=== PATIENT | male | born 1970 | race Caucasian/White ===

== ENCOUNTER 2019-06-18 23:50 | Observation (INO) ==
[2019-06-19] MEDS ORDERED: Isovue-370 500 ML BOTTLE IVP ONE (03:08)
--- NOTE | 2019-06-19 03:09 | Emergency Department Note ---
Disposition Clinical Impression: Lower leg edema Cellulitis Qualifiers: Site of cellulitis: other site Qualified Code(s): L03.818 - Cellulitis of other sites Disposition: Still a Patient Condition: Good Referrals: NONE,PCP [Primary Care Provider] - Forms: ED Satisfaction Letter Time of Disposition: 06:18 Extremity Problem HPI - General Chief complaint: ED Extremity Problem,Nontraumatic Stated complaint: BLE edema Time Seen by Provider: 06/19/19 01:04 Source: patient Limitations: no limitations Nursing Notes Reviewed: Yes Vital Signs Reviewed: Yes - History of Present Illness HPI Narrative: 48-year-old male presents with pain swelling and worsening infection to his lower legs. Since he was seen in this department 2 days ago and was diagnosed with skin infection placed on antibiotics. He states that he has had worsening swelling and pain to the point where it is causing him difficulty to walk. Additionally he also mentions his sores become more red and continue to drain. He denies any fevers, chest pain, shortness of breath Pain Scale: 7 - Related Data Previous Rx's Medication Instructions Recorded Albuterol Sulfate [Albuterol 1 puff IH Q4HR #1 hfa.aer.ad 02/18/19 Inhaler] Doxycycline Hyclate [Vibramycin] 100 mg PO BID #20 capsule 02/18/19 Guaifenesin/Dm/Pseudoephedrine 1 each PO BID #20 tablet 02/18/19 [Capmist Dm Tablet] Magic Mouthwash [Magic Mouthwash 10 ml PO QID #240 ml 02/18/19 BLM] PredniSONE [Deltasone] 20 mg PO DAILY #12 tablet 02/18/19 Mupirocin [Bactroban Oint] 1 appl TP TID #1 tube 06/16/19 cephALEXin [Keflex] 500 mg PO QID 7 Days #28 capsule 06/16/19 hydrOXYzine pamoate [Vistaril] 25 mg PO TID 7 Days #21 capsule 06/16/19 Allergies Allergy/AdvReac Type Severity Reaction Status Date / Time No Known Allergies Allergy Verified 02/18/19 12:44 All systems ED: reviewed and negative except as stated. Review of Systems: As Per HPI Constitutional: Denies: fever, chills Eyes: Denies: eye pain ENT ED: Denies: ear pain Cardiovascular: Denies: chest pain Respiratory: Denies: dyspnea Gastrointestinal: Denies: abdominal pain, nausea, vomiting Genitourinary: Denies: dysuria Musculoskeletal: Denies: back pain Integumentary: Denies: rash Neurological: Denies: headache Allergic/Immunologic: Denies: facial swelling Past Medical History - Past Medical History Medical history: Reports: COPD Surgical history: Reports: coronary bypass (CABG), knee replacement, other Psychiatric history: Reports: no psych history - Social History Smoking Status: Current every day smoker Smokeless Tobacco Status: No Alcohol use: Reports: occasionally Drug use: Reports: none Physical Exam - General Limitations: no limitations General appearance: alert, in no apparent distress - Head Head exam: atraumatic, normocephalic - Eye Eye exam: Present: normal appearance, EOMI - ENT ENT exam: mucous membranes moist - Neck Neck exam: Present: full ROM - Chest Chest inspection: Present: symmetric chest wall rise - Respiratory Respiratory exam: Absent: respiratory distress - Cardiovascular Cardiovascular exam: Present: regular rate - Abdominal Exam Abdominal exam: Present: soft - Extremities Exam Extremities exam: Present: normal capillary refill, other (multiple sores approx 1cm with surrounding erythema,) - Expanded Lower Extremity Exam Lower leg exam: Present: swelling (bilateral) - Back Exam Back exam: Present: normal inspection, full ROM - Neurological Exam Neurological exam: Present: alert - Psychiatric Psychiatric exam: Present: normal affect, normal mood - Skin Skin exam: Present: warm, dry, intact, normal color. Absent: rash, cyanosis, diaphoresis Course Course Narrative: Patient is a 48-year-old male presents with worsening infection his legs, I lateral lower leg edema and pain. Exercise patient 2 days ago where he had presented with itchy sores on his legs. At that time did appear to be consistent with a secondary skin infection and he was started on dose of cephalexin as well as topical mupirocin. Since that time, he mentions he has had gradual swelling of his lower legs, worsening pain in addition he also had mentioned redness around his sores has been spreading. Pt now using walker bc of lower leg pain. On exam pt has BLE edema, non pitting. Very tender to touch. Noted sores have persisted but the areas around the these sores are more erythemic and also tender. Concerning for cellulitis. Due to degree of pain, swelling, and possible infection. I discussed with attending Dr. Ziegler who agreed to see patient and for CT scans. Will also draw bloodwork, and workup for BLE edema. - Reevaluation(s) Reevaluation #1: CXR show diffuse peribronchial thickening. Radiology read mentions possible pulmonary edema. EKG non specific st-t changes otherwise acute changes. No elevated WBC. Normal lactic acid. Troponin elevated 0.06. Due to shift change, care of this patient will be transferred over to day shift provider, Felipe Keita CNP. CT lower extremity and BNP pending at this time. Pt pain improved. I anticipate pt will need to be admitted for cellulitis failing outpatient therapy and elevated troponin. Please see felipe's documentation for further evaluation and details on final disposition of patient. Time: 06:17 Vital Signs Temperature 98.3 F 06/18/19 23:54 Pulse Rate 79 06/18/19 23:54 Respiratory Rate 20 06/18/19 23:54 Blood Pressure 142/88 06/18/19 23:54 O2 Sat by Pulse Oximetry 96 06/18/19 23:54 Temperature 98.3 F 06/18/19 23:54 Pulse Rate 65 06/19/19 04:01 Respiratory Rate 16 06/19/19 04:01 Blood Pressure 142/86 06/19/19 04:01 O2 Sat by Pulse Oximetry 99 06/19/19 04:01 Oxygen Delivery Oxygen Delivery Room Air Extremity Problem, Nontraumati - MDM Narrative Medical decision making narrative: Chest X-Ray 06/19/19 04:44 IMPRESSION: Peribronchial thickening suspicious for pulmonary edema given clinical history of lower extremity edema. D/ / Ej Gurrola / Ej Gurrola Interpreting Provider: Ej Gurrola - Lab Data Lab results reviewed: Yes I reviewed the patient's lab results. Result diagrams: 06/19/19 04:10 06/19/19 04:10 Lab Results 06/19/19 06/19/19 06/19/19 Range/Units 04:10 04:10 04:10 WBC 7.6 (4.3-11.1) K/mcL RBC 4.57 (4.19-5.50) M/mcL Hgb 14.5 (12.9-16.9) g/dL Hct 43.1 (37.5-50.1) % MCV 94.3 (83.0-100.0) fL MCH 31.7 (28.0-33.3) pg MCHC 33.6 (31.6-35.5) g/dL RDW 13.0 (11.5-14.5) % Plt Count 222 (140-400) K/mcL MPV 8.8 L (9.4-12.4) fL Immature Gran % 0.7 (0-4) % Seg Neutrophils % 56.6 % Lymphocytes % 29.0 % Monocytes % 10.4 % Eosinophils % 2.2 % Basophils % 1.1 % Neutrophils # 4.3 (1.6-8.9) K/mcL Lymphocytes # 2.2 (0.6-4.6) K/mcL Monocytes # 0.8 (0.0-1.3) K/mcL Eosinophils # 0.2 (0.0-0.6) K/mcL Basophils # 0.1 (0.0-0.2) K/mcL Sodium 136 (136-145) mEq/L Potassium 3.7 (3.5-5.1) mEq/L Chloride 102 (98-107) mEq/L Carbon Dioxide 27 (23-29) mEq/L BUN 12 (6-20) mg/dL Creatinine 1.07 (0.70-1.30) mg/dL Est GFR ( Amer) > 60 (> 60) Est GFR (Non-Af Amer) > 60 (> 60) BUN/Creatinine Ratio 11 (6-26) Glucose 95 (70-105) mg/dL Calculated Osmolality 282 (280-300) Lactic Acid 0.8 (0.5-2.2) mmol/L Calcium 9.1 (8.6-10.3) mg/dL - Radiology Data Radiology results reviewed: Yes I reviewed the patient's radiology results. - EKG Data EKG attestation: Yes I reviewed and interpreted this EKG. EKG shows normal: sinus rhythm Rate: normal Rhythm: NSR Guth[place]/QRS: normal Interpretation: no acute changes, nonspecific ST-T wave changes
[2019-06-19 04:21] LABS: Basophils # 0.1 K/mcL (0.0-0.2); Basophils % 1.1 %; Eosinophils # 0.2 K/mcL (0.0-0.6); Eosinophils % 2.2 %; Hematocrit 43.1 % (37.5-50.1); Hemoglobin 14.5 g/dL (12.9-16.9); Immature Granulocytes % 0.7 % (0-4); Lymphocytes # 2.2 K/mcL (0.6-4.6); Mean Corpuscular HGB Conc 33.6 g/dL (31.6-35.5); Mean Corpuscular Hemoglobin 31.7 pg (28.0-33.3); Mean Corpuscular Volume 94.3 fL (83.0-100.0); Mean Platelet Volume 8.8 fL (9.4-12.4); Monocytes # 0.8 K/mcL (0.0-1.3); Monocytes % 10.4 %; Neutrophils # 4.3 K/mcL (1.6-8.9); Platelet Count 222 K/mcL (140-400); Red Blood Count 4.57 M/mcL (4.19-5.50); Segmented Neutrophils % 56.6 %; White Blood Count 7.6 K/mcL (4.3-11.1)
[2019-06-19 04:40] LABS: BUN/Creatinine Ratio 11 (6-26); Blood Urea Nitrogen 12 mg/dL (6-20); Calcium 9.1 mg/dL (8.6-10.3); Carbon Dioxide 27 mEq/L (23-29); Chloride 102 mEq/L (98-107); Glucose 95 mg/dL (70-105); Osmolality,Calculated 282 (280-300); Potassium 3.7 mEq/L (3.5-5.1); Sodium 136 mEq/L (136-145); eGFR For African Americans > 60 (> 60); eGFR For Non-African Americans > 60 (> 60)
[2019-06-19 05:55] LABS: Troponin I 0.06 ng/mL (< 0.04)
[2019-06-19] MEDS ORDERED: Aspirin 81 MG TAB.CHEW PO ONE (05:57)
[2019-06-19] MEDS ORDERED: Tdap (Boostrix) Vaccine 0.5 ML SYRINGE IM ONE (06:20)
--- NOTE | 2019-06-19 06:20 | Emergency Department Note ---
Disposition Clinical Impression: Lower leg edema, Elevated troponin I level Cellulitis Qualifiers: Site of cellulitis: other site Qualified Code(s): L03.818 - Cellulitis of other sites Disposition: Admitted As Inpatient Condition: Good Referrals: NONE,PCP [Primary Care Provider] - Forms: ED Satisfaction Letter Time of Disposition: 07:32 General Adult HPI - General Chief complaint: ED Extremity Problem,Nontraumatic Stated complaint: BLE edema Time Seen by Provider: 06/19/19 01:04 Source: patient Limitations: no limitations - History of Present Illness Pain Scale: 7 - Related Data Previous Rx's Medication Instructions Recorded Albuterol Sulfate [Albuterol 1 puff IH Q4HR #1 hfa.aer.ad 02/18/19 Inhaler] Allergies Allergy/AdvReac Type Severity Reaction Status Date / Time No Known Allergies Allergy Verified 02/18/19 12:44 Constitutional: Denies: fever, chills Eyes: Denies: eye pain ENT ED: Denies: ear pain Cardiovascular: Denies: chest pain Respiratory: Denies: dyspnea Gastrointestinal: Denies: abdominal pain, nausea, vomiting Genitourinary: Denies: dysuria Musculoskeletal: Denies: back pain Integumentary: Denies: rash Neurological: Denies: headache Allergic/Immunologic: Denies: facial swelling Past Medical History - Past Medical History Medical history: Reports: COPD Surgical history: Reports: coronary bypass (CABG), knee replacement, other Psychiatric history: Reports: no psych history - Social History Smoking Status: Current every day smoker Smokeless Tobacco Status: No Alcohol use: Reports: occasionally Drug use: Reports: none Physical Exam - General Limitations: no limitations General appearance: alert, in no apparent distress Course Vital Signs Temperature 98.3 F 06/18/19 23:54 Pulse Rate 79 06/18/19 23:54 Respiratory Rate 20 06/18/19 23:54 Blood Pressure 142/88 06/18/19 23:54 O2 Sat by Pulse Oximetry 96 06/18/19 23:54 Temperature 98.3 F 06/18/19 23:54 Pulse Rate 68 06/19/19 06:40 Respiratory Rate 16 06/19/19 06:40 Blood Pressure 133/85 06/19/19 06:40 O2 Sat by Pulse Oximetry 99 06/19/19 06:01 Oxygen Delivery Oxygen Delivery Room Air Medical Decision Making - MDM Narrative Medical decision making narrative: 48-year-old male presents with worsening leg swelling and redness. Patient was seen 2 days ago for cellulitis in both legs. He was discharged home with Keflex. Patient denied chills and a fever. Physical exam bilateral lower legs swelling, erythema around black scab, no purulent drainage. White cell normal, troponin elevated 0.06. Patient denied chest pain or shortness breath. EKG no ST change. Aspirin given in ED. Repeat troponin is 0.06. CT bilateral legs: No abscess, no fasciitis, no osteomyelitis. Patient will be admitted for cellulitis ( failed outpatient treatment) , elevated troponin. Spoke with Hospitalist. Pt is accepted. - Lab Data Result diagrams: 06/19/19 04:10 06/19/19 04:10 Lab Results 06/19/19 06/19/19 06/19/19 Range/Units 04:10 04:10 04:10 WBC 7.6 (4.3-11.1) K/mcL RBC 4.57 (4.19-5.50) M/mcL Hgb 14.5 (12.9-16.9) g/dL Hct 43.1 (37.5-50.1) % MCV 94.3 (83.0-100.0) fL MCH 31.7 (28.0-33.3) pg MCHC 33.6 (31.6-35.5) g/dL RDW 13.0 (11.5-14.5) % Plt Count 222 (140-400) K/mcL MPV 8.8 L (9.4-12.4) fL Immature Gran % 0.7 (0-4) % Seg Neutrophils % 56.6 % Lymphocytes % 29.0 % Monocytes % 10.4 % Eosinophils % 2.2 % Basophils % 1.1 % Neutrophils # 4.3 (1.6-8.9) K/mcL Lymphocytes # 2.2 (0.6-4.6) K/mcL Monocytes # 0.8 (0.0-1.3) K/mcL Eosinophils # 0.2 (0.0-0.6) K/mcL Basophils # 0.1 (0.0-0.2) K/mcL ESR (0-10) mm/hr Sodium 136 (136-145) mEq/L Potassium 3.7 (3.5-5.1) mEq/L Chloride 102 (98-107) mEq/L Carbon Dioxide 27 (23-29) mEq/L BUN 12 (6-20) mg/dL Creatinine 1.07 (0.70-1.30) mg/dL Est GFR ( Amer) > 60 (> 60) Est GFR (Non-Af Amer) > 60 (> 60) BUN/Creatinine Ratio 11 (6-26) Glucose 95 (70-105) mg/dL Calculated Osmolality 282 (280-300) Lactic Acid 0.8 (0.5-2.2) mmol/L Calcium 9.1 (8.6-10.3) mg/dL Troponin I 0.06 H* (< 0.04) ng/mL 06/19/19 06/19/19 Range/Units 06:46 06:46 WBC (4.3-11.1) K/mcL RBC (4.19-5.50) M/mcL Hgb (12.9-16.9) g/dL Hct (37.5-50.1) % MCV (83.0-100.0) fL MCH (28.0-33.3) pg MCHC (31.6-35.5) g/dL RDW (11.5-14.5) % Plt Count (140-400) K/mcL MPV (9.4-12.4) fL Immature Gran % (0-4) % Seg Neutrophils % % Lymphocytes % % Monocytes % % Eosinophils % % Basophils % % Neutrophils # (1.6-8.9) K/mcL Lymphocytes # (0.6-4.6) K/mcL Monocytes # (0.0-1.3) K/mcL Eosinophils # (0.0-0.6) K/mcL Basophils # (0.0-0.2) K/mcL ESR 34 H (0-10) mm/hr Sodium (136-145) mEq/L Potassium (3.5-5.1) mEq/L Chloride (98-107) mEq/L Carbon Dioxide (23-29) mEq/L BUN (6-20) mg/dL Creatinine (0.70-1.30) mg/dL Est GFR ( Amer) (> 60) Est GFR (Non-Af Amer) (> 60) BUN/Creatinine Ratio (6-26) Glucose (70-105) mg/dL Calculated Osmolality (280-300) Lactic Acid (0.5-2.2) mmol/L Calcium (8.6-10.3) mg/dL Troponin I 0.06 H* (< 0.04) ng/mL - Radiology Data Radiology results reviewed: Yes I reviewed the patient's radiology results. FINDINGS: RIGHT Bones: Bones are intact and in anatomic alignment. Normal bone mineralization. Soft Tissue: Superficial soft tissue swelling along the lower leg, ankle and foot. No drainable fluid collection or rim enhancing abscess. No appreciable stranding of the fat planes within the deep muscular compartments. No soft tissue gas. Joint: No right knee joint effusion. LEFT Bones: Bones are intact and in anatomic alignment. Status post total left knee arthroplasty. Prosthetic components are without evidence of loosening or periprosthetic fracture. Soft Tissue: Superficial soft tissue swelling along the lower leg, ankle and foot. No drainable fluid collection or rim enhancing abscess. Fat planes of the deep muscular compartments preserved. No soft tissue gas. Joint: Small suprapatellar joint effusion. CT/CT lower leg RT w con IMPRESSION: Bilateral lower extremity edema about the lower legs, ankles and feet could represent cellulitis given provided history. No drainable fluid collection or rim enhancing abscess. Fat planes of the deep muscular compartments appear preserved. No soft tissue gas. No osseous destruction or erosion to suggest osteomyelitis. Intact left knee prosthesis without evidence of hardware complication. D/ / Ej Gurrola / Ej Gurrola Interpreting Provider: Ej Gurrola
[2019-06-19] MEDS ORDERED: Clindamycin 600 MG/50 ML 600 MG/50 ML IV.SOLN IVPB STA (07:27)
--- NOTE | 2019-06-19 08:35 | Internal Med History&Physical ---
Date of Encounter: 06/19/19 Time of Encounter: 07:40 Internal Medicine - H&P: HPI Chief complaint: BL LE swelling and pain Admitted From: Home Plans for Post Hospital Care: Home History of present illness: Mr. Dugan is a 48 year old male pmhx copd, gerd, HTN, bicuspid valve, open heart surgery (for valve not CAD per pt), tobacco use who presented to ED 06/16/19 for multiple BL LE sores with itching and pain. He was dx with folliculitis and sent home with keflex. He re presented 06/19 with worsened le edema, pain and redness after taking keflex and using topical ointment as prescribed on previous visit. BL LE "bites or scratches" occurred in recent days when working outside. He notes scratching legs on shrubs. He is unsure if he was also bit by any bugs as he has had some associated itching. He has scratched wounds with excoriations and now surrounding erythema. Legs are now edematous and becoming painful and tight. He denies any associated fever or chills, n/v. No hx of recent travel, immobilization, calf pain, of blood clots in he or family members. He has no family members in the house with similar appearing wounds/bites. He has no history of infectious diseases such as hepatitis or hiv. No improvement in sxs with Keflex/ointment. Sxs located bl legs mostly below knees with one wound on either thigh. HE denies drainage or bleeding. cv- no cp, pressure, sob, palpitations, pitting le edema or orthopnea pulm- no sob, orthopnea, pnd, cough, wheezing or sputum production gi- no abd pain, n/v/d or constipation skin- no other rashes, pallor, jaundice Past Med Surg Social Fam HX - Past Medical History Medical history: COPD, GERD, hypertension Additional medical history: heart valve regurg - Past Surgical History Surgical History: knee replacement, other Additional surgical history: upper and lower GI , open heart surgery for bicuspid valve per pt - Social History Smoking Status: Current every day smoker Smokeless Tobacco Status: No Alcohol use: occasionally Drug use: none - Family History Mother Hx Family Endocrine Disorder: Yes (Diabetes) Internal Medicine - H&P: Meds Albuterol Sulfate [Albuterol Inhaler] 1 puff IH Q4HR #1 hfa.aer.ad 02/18/19 [Rx] Allergy/AdvReac Type Severity Reaction Status Date / Time No Known Allergies Allergy Verified 02/18/19 12:44 All Systems PM: A 10-system review of systems was performed and is negative for pertinent fin dings except as documented above in the HPI. - Constitutional Vitals: Temp Pulse Resp BP Pulse Ox 98.3 F 68 16 133/85 99 06/18/19 23:54 06/19/19 06:40 06/19/19 06:40 06/19/19 06:40 06/19/19 06:01 Exam: General: awake, alert, appears stated age HEENT:EOM intact, pupils equal, round, moist mucus membranes Neck: supple, trachea midline Cardiovascular:regular rate and rhythm, normal S1 & S2,no lower extremity pitting edema Lungs:Normal breath sounds, no wheezes, or crackles. Normal respiratory effort Abdomen:Soft, non-tender, non-distended,+ bowel sounds Extremities:No deformity, no edema or tenderness of BL LE joints Neurological: AAOx3, CN grossly intact Skin:mulptiple small healing wounds bl legs/shins with one wound on each thigh, scabbed without drainage, + mild surrounding erythema, generalized mild erythema bl shins, dependent edema, no rash, no pallor, no jaundice Internal Med - H&P Results - Labs CBC & Chem 7: 06/19/19 04:10 06/19/19 04:10 Labs: Short CBC 06/19/19 Range/Units 04:10 WBC 7.6 (4.3-11.1) K/mcL Hgb 14.5 (12.9-16.9) g/dL Hct 43.1 (37.5-50.1) % Plt Count 222 (140-400) K/mcL Neutrophils # 4.3 (1.6-8.9) K/mcL BMP 06/19/19 04:10 Sodium 136 Potassium 3.7 Chloride 102 Carbon Dioxide 27 BUN 12 Creatinine 1.07 Glucose 95 Calcium 9.1 Cardiac Enzymes 06/19/19 06/19/19 Range/Units 04:10 06:46 Troponin I 0.06 H* 0.06 H* (< 0.04) ng/mL - Impressions ITS Impressions Lower Extremity CT 06/19/19 03:08 IMPRESSION: Bilateral lower extremity edema about the lower legs, ankles and feet could represent cellulitis given provided history. No drainable fluid collection or rim enhancing abscess. Fat planes of the deep muscular compartments appear preserved. No soft tissue gas. No osseous destruction or erosion to suggest osteomyelitis. Intact left knee prosthesis without evidence of hardware complication. D/ / Ej Gurrola / Ej Gurrola Interpreting Provider: Ej Gurrola Lower Extremity CT 06/19/19 03:08 IMPRESSION: Bilateral lower extremity edema about the lower legs, ankles and feet could represent cellulitis given provided history. No drainable fluid collection or rim enhancing abscess. Fat planes of the deep muscular compartments appear preserved. No soft tissue gas. No osseous destruction or erosion to suggest osteomyelitis. Intact left knee prosthesis without evidence of hardware complication. D/ / Ej Gurrola / Ej Gurrola Interpreting Provider: Ej Gurrola Chest X-Ray 06/19/19 04:44 IMPRESSION: Peribronchial thickening suspicious for pulmonary edema given clinical history of lower extremity edema. D/ / Ej Gurrola / Ej Gurrola Interpreting Provider: Ej Gurrola - Assessment and Plan (1) Cellulitis Current Visit: Yes Status: Acute Assessment and plan: BL LE cellulitis as evidenced on cT scan CT BL LE - edema BL LE, no drainable fluid collection, or abscess, no soft tissue gas, no bone destruction to suggest osteo failed outpt keflex no draining wounds for cx while his esr and crp are elevated (34 and 27) he has no osseous destruction on imaging to suggest osteo -IV doxy -tylenol prn pain -bl cxs pending Qualifiers: Site of cellulitis: extremity Site of cellulitis of extremity: lower extremity Laterality: unspecified laterality Qualified Code(s): L03.119 - Cellulitis of unspecified part of limb (2) Elevated troponin I level Current Visit: Yes Status: Acute Assessment and plan: Asx, no history of CAD (open heart was for bicuspid valve per pt) EKG NSRTWI avl and flattened T in V1-V2 all unchanged from prior 02/21/2018 Trop 0.06 x2 and no prior to compare -tele, trend trop, am ekg, am tsh, a1c and lipid panel to risk stratify -asa 81 mg daily -check echo and further inpt eval pending results of work up (3) Tobacco use Current Visit: No Status: Chronic
[2019-06-19] MEDS ORDERED: Naloxone 0.4 MG/ML INJ IVP PRN (08:41)
[2019-06-19] MEDS ORDERED: Acetaminophen 325 MG TABLET PO PRN (08:41)
[2019-06-19] MEDS: *HR* Heparin 5,000 UNIT/ML VIAL SQ SCH ×2 (15:33→20:42)
[2019-06-19] MEDS: Doxycycline 100 MG in 0.9 % Sodium Chloride Mini Bag 100 ML IVPB SCH (18:15)
--- NOTE | 2019-06-19 18:28 | Electrocardiograph Report ---
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
[2019-06-20 02:02] LABS: Basophils # 0.1 K/mcL (0.0-0.2); Basophils % 1.5 %; Eosinophils # 0.2 K/mcL (0.0-0.6); Eosinophils % 2.8 %; Hematocrit 44.4 % (37.5-50.1); Hemoglobin 15.1 g/dL (12.9-16.9); Immature Granulocytes % 0.6 % (0-4); Lymphocytes # 1.5 K/mcL (0.6-4.6); Lymphocytes % 24.5 %; Mean Corpuscular Hemoglobin 31.6 pg (28.0-33.3); Mean Corpuscular Volume 92.9 fL (83.0-100.0); Mean Platelet Volume 8.7 fL (9.4-12.4); Monocytes # 0.6 K/mcL (0.0-1.3); Monocytes % 10.1 %; Neutrophils # 3.7 K/mcL (1.6-8.9); Platelet Count 242 K/mcL (140-400); Red Blood Count 4.78 M/mcL (4.19-5.50); Red Cell Distribution Width 13.1 % (11.5-14.5); Segmented Neutrophils % 60.5 %; White Blood Count 6.2 K/mcL (4.3-11.1)
[2019-06-20 02:18] LABS: BUN/Creatinine Ratio 13 (6-26); Blood Urea Nitrogen 13 mg/dL (6-20); Calcium 9.1 mg/dL (8.6-10.3); Carbon Dioxide 27 mEq/L (23-29); Chloride 105 mEq/L (98-107); Chol/HDL Ratio 5.3 (0-4.9); Cholesterol 179 mg/dL (< 200); Glucose 114 mg/dL (70-105); HDL Cholesterol 34 mg/dL (40-59); LDL Cholesterol,Calculated 116 mg/dL (0-99); Osmolality,Calculated 283 (280-300); Potassium 4.5 mEq/L (3.5-5.1); Sodium 136 mEq/L (136-145); Triglycerides 146 mg/dL (< 150); eGFR For African Americans > 60 (> 60); eGFR For Non-African Americans > 60 (> 60)
[2019-06-20 02:31] LABS: Thyroid Stimulating Hormone 1.872 mcIU/mL (0.340-5.600)
[2019-06-20] MEDS: *HR* Heparin 5,000 UNIT/ML VIAL SQ SCH (05:50)
[2019-06-20] MEDS: Doxycycline 100 MG in 0.9 % Sodium Chloride Mini Bag 100 ML IVPB SCH (05:51)
[2019-06-20 07:58] VITALS: BP 136/87
--- NOTE | 2019-06-20 07:58 | Discharge Summary ---
- NOTES TO OUTPATIENT PROVIDER Notes to Outpatient Provider: f/u with PCP within a week. Orders not resulted at time of discharge: Pending orders 06/19/19 04:17 Culture,Blood [BC] Stat Date of Encounter: 06/20/19 Time of Encounter: 07:56 - Discharge Diagnosis (1) Tobacco use Priority: Primary Status: Chronic (2) Cellulitis Priority: Primary Status: Acute Qualifiers: Site of cellulitis: extremity Site of cellulitis of extremity: lower extremity Laterality: unspecified laterality Qualified Code(s): L03.119 - Cellulitis of unspecified part of limb (3) Elevated troponin I level Priority: Primary Status: Acute Hospital course: Mr. Dugan is a 48 year old male pmhx copd, gerd, HTN, bicuspid valve, open heart surgery (for valve not CAD per pt), tobacco use who presented to ED 06/16/19 for multiple BL LE sores with itching and pain. He was dx with folliculitis and sent home with keflex. He re presented 06/19 with worsened le edema, pain and redness after taking keflex and using topical ointment as prescribed on previous visit. BL LE "bites or scratches" occurred in recent days when working outside. He notes scratching legs on shrubs. He is unsure if he was also bit by any bugs as he has had some associated itching. He has scratched wounds with excoriations and now surrounding erythema. Legs are now edematous and becoming painful and tight. He denies any associated fever or chills, n/v. No hx of recent travel, immobilization, calf pain, of blood clots in he or family members. He has no family members in the house with similar appearing wounds/bites. He has no history of infectious diseases such as hepatitis or hiv. No improvement in sxs with Keflex/ointment. Sxs located bl legs mostly below knees with one wound on either thigh. HE denies drainage or bleeding. Patient symptoms improved with IV doxycycline and supportive care. On the second hospital day, patient is eager to go home, he stated that he would rather go home, taking oral antibiotics. His labs showed mild elevation of troponin, he was instructed to discuss with PCP about disease and a pursue further testing if appropriate. Patient is discharged home today, he was instructed to take doxycycline for week and a Benadryl as needed for itchiness, follow-up with PCP within a week. Discharge discussed with: patient Time spent discussing smoking cessation with patient: more than 10 minutes - Time Spent with Patient Total time spent providing and/or coordinating discharge services: Time spent: Greater than 30 minutes - Discharge Medications Prescriptions: New DiphenhydraMINE [Benadryl] 25 mg PO BID PRN #6 capsule PRN Reason: Allergy Symptoms Doxycycline 100 mg PO BID #14 capsule Continued Albuterol Sulfate [Proventil Inhaler] 1 puff IH Q4HR #1 hfa.[email or web address].ad Home Medications: Albuterol Sulfate [Proventil Inhaler] 1 puff IH Q4HR #1 hfa.aer.ad 02/18/19 [Rx] DiphenhydraMINE [Benadryl] 25 mg PO BID PRN #6 capsule 06/20/19 [Rx] Doxycycline 100 mg PO BID #14 capsule 06/20/19 [Rx] Allergies/Adverse Reactions: Allergy/AdvReac Type Severity Reaction Status Date / Time No Known Allergies Allergy Verified 02/18/19 12:44 Date of admission: 06/19/19 08:14 Primary care physician: PCP NONE Anticipated date of discharge: 06/20/19 - Constitutional Vitals: Temp Pulse Resp BP Pulse Ox 97.4 F L 64 16 129/84 97 06/20/19 03:54 06/20/19 03:54 06/20/19 03:54 06/20/19 03:54 06/20/19 03:54 General appearance: Present: A&O X 3 Exam: General: awake, alert, appears stated age HEENT:EOM intact, pupils equal, round, moist mucus membranes Neck: supple, trachea midline Cardiovascular:regular rate and rhythm, normal S1 & S2,no lower extremity pitting edema Lungs:Normal breath sounds, no wheezes, or crackles. Normal respiratory effort Abdomen:Soft, non-tender, non-distended,+ bowel sounds Extremities:No deformity, no edema or tenderness of BL LE joints Neurological: AAOx3, CN grossly intact Skin:mulptiple small healing wounds bl legs/shins with one wound on each thigh, scabbed without drainage, + mild surrounding erythema, generalized mild erythema bl shins, dependent edema, no rash, no pallor, no jaundice - Patient Status Disposition: Home, Self-Care Condition: Good Functional capacity at discharge: independent ambulation Overall status at discharge: patient is progressing back to baseline - Discharge Instructions Follow Up With: NONE,PCP [Primary Care Provider] - - Diet and Activity Activity: increase activity as tolerated Diet: low fat, low cholesterol, low salt diet
[2019-06-20 08:39] LABS: Estimated Average Glucose 117 mg/dl
[2019-06-20] MEDS ORDERED: Aspirin Enteric Coated 81 MG Tablet PO SCH (09:00)
== END 2019-06-20 11:10 | disposition home or self-care (01) ==
LOC: EMEROOARM 23:50 → 3BNU 23:50
PROVIDERS: ADMIT Internal Medicine; ATTEND Internal Medicine

== ENCOUNTER 2021-10-14 17:42 | Observation (INO) ==
[2021-10-14] MEDS ORDERED: Aspirin 81 MG TAB.CHEW PO ONE (18:07)
[2021-10-14 18:18] LABS: Basophils # 0.1 K/mcL (0.0-0.2); Basophils % 1.4 %; Eosinophils # 0.3 K/mcL (0.0-0.6); Hematocrit 46.3 % (37.5-50.1); Lymphocytes # 2.4 K/mcL (0.6-4.6); Lymphocytes % 27.5 %; Mean Corpuscular HGB Conc 34.6 g/dL (31.6-35.5); Mean Corpuscular Volume 92.6 fL (83.0-100.0); Mean Platelet Volume 9.2 fL (9.4-12.4); Monocytes # 0.8 K/mcL (0.0-1.3); Monocytes % 8.8 %; Neutrophils # 5.1 K/mcL (1.6-8.9); Platelet Count 282 K/mcL (140-400); Red Cell Distribution Width 13.1 % (11.5-14.5); Segmented Neutrophils % 58.3 %; White Blood Count 8.8 K/mcL (4.3-11.1)
[2021-10-14 18:29] LABS: Prothrombin Time 11.1 Seconds (9.4-12.1)
[2021-10-14 18:32] LABS: Activated Partial Thrombo Time 35.4 Seconds (26.0-36.0)
[2021-10-14 18:39] LABS: BUN/Creatinine Ratio 10 (6-26); Blood Urea Nitrogen 12 mg/dL (6-20); Carbon Dioxide 28 mEq/L (23-29); Chloride 102 mEq/L (98-107); Glucose 126 mg/dL (70-105); Osmolality,Calculated 285 (280-300); Sodium 137 mEq/L (136-145); eGFR For African Americans > 60 (> 60); eGFR For Non-African Americans > 60 (> 60)
[2021-10-14 18:40] LABS: Troponin I < 0.03 ng/mL (< 0.04)
[2021-10-14 18:41] LABS: Platelet Estimate Normal (Normal); Reactive Lymphocytes Present (Not Present)
[2021-10-14] MEDS ORDERED: Melatonin 3 MG TABLET PO PRN (21:12)
[2021-10-14] MEDS ORDERED: Naloxone 0.4 MG/ML INJ IVP PRN (21:12)
[2021-10-14] MEDS ORDERED: Ipratropium/Albuterol Neb 3 ML IH PRN (21:17)
[2021-10-14] MEDS ORDERED: Perflutren Lipid Microsphere 1.3 ML in 0.9 % Sodium Chloride 8.7 ML IVP PRN (22:25)
[2021-10-15] MEDS ORDERED: *HR* Heparin 5,000 UNIT/ML VIAL SQ SCH (06:00)
[2021-10-15] MEDS ORDERED: Aspirin 81 MG TAB.CHEW PO SCH (09:00)
[2021-10-15] MEDS ORDERED: Budesonide/Formoterol 80/4.5 1 PUFF INH IH SCH (10:00)
[2021-10-15 15:57] VITALS: BP 118/70; PULSE 73; TEMP 97.9; O2SAT 95
== END 2021-10-15 16:49 | disposition home or self-care (01) ==
LOC: 3BNU 17:42 → EMEROOARM 17:42 → 3BNU 21:46
PROVIDERS: ADMIT Student in an Organized Health Care Education/Training Program; ATTEND Student in an Organized Health Care Education/Training Program

== ENCOUNTER 2022-02-02 07:13 | Inpatient (IN) ==
[~2022-02-02 07:13] MED LIST: DOBUTamine 1,000 MG/250 ML BAG ONE; NiCARdipine 2.5 MG/10 ML Syringe IVPB ONE
[2022-02-02] MEDS ORDERED: CeFAZolin Syr 3,000MG/30 ML 3,000 MG/30 ML SYRINGE IVPB ONE (07:45)
[2022-02-02] MEDS ORDERED: Chlorhexidine Rinse 15 ML MOUTHWASH MM ONE (07:48)
[2022-02-02] MEDS ORDERED: Heparin 15,000 UNIT in 0.9 % Sodium Chloride 500 ML IV ONE (08:00)
[2022-02-02] MEDS ORDERED: del Nido Cardioplegia Solution PF ONE (08:00)
[2022-02-02] MEDS ORDERED: Vancomycin 2,000 MG/520 ML IV.SOLN IVPB ONE (08:00)
[2022-02-02] MEDS ORDERED: del Nido Cardioplegia Solution PF SCH (08:00)
[2022-02-02] MEDS ORDERED: Buckersberg's Blood Cardioplegia PF SCH (08:00)
[2022-02-02] MEDS ORDERED: Norepinephrine 4 MG in 0.9 % Sodium Chloride 250 ML IVC PRN (08:00)
[2022-02-02] MEDS ORDERED: Lidocaine -MPF 2% 5 ML VIAL ONE (08:18)
[2022-02-02] MEDS ORDERED: Heparin 1,000 UNITS/500 mL 500 ML ONE (09:43)
[2022-02-02] MEDS ORDERED: *HR* Rocuronium Bromide 50 MG/5 ML VIAL ONE ×2 (10:40→11:50)
[2022-02-02 10:53] LABS: ABG Base Excess 1 mEq/L (-2 to 3); ABG Chloride 104 mEq/L (98-107); ABG Glucose 95 mg/dL (60-95); ABG HCO3 28 mEq/L (21-27); ABG Ionized Calcium 1.18 mmol/L (1.15-1.35); ABG Oxygen Saturation 97 % (95-98); ABG PCO2 54 mmHg (35-45); ABG PH 7.33 pH Units (7.32-7.45); ABG PO2 95 mmHg (85-104); ABG TCO2 30 mEq/L (20-26)
[2022-02-02 11:21] LABS: ABG Base Excess 1 mEq/L (-2 to 3); ABG Chloride 105 mEq/L (98-107); ABG Glucose 110 mg/dL (60-95); ABG HCO3 26 mEq/L (21-27); ABG Ionized Calcium 1.11 mmol/L (1.15-1.35); ABG Oxygen Saturation 99 % (95-98); ABG PCO2 41 mmHg (35-45); ABG PH 7.41 pH Units (7.32-7.45); ABG PO2 130 mmHg (85-104); ABG TCO2 27 mEq/L (20-26)
[2022-02-02] MEDS ORDERED: *HR* Phenylephrine 10 MG/ML VIAL IVC ONE (11:38)
[2022-02-02] MEDS ORDERED: *HR* Magnesium Sulfate 2 GM/50 ML PIGGYBACK IVPB ONE (11:38)
[2022-02-02] MEDS ORDERED: Albumin Human 25% 25 GM/100 ML IV.SOLN IVPB ONE (11:38)
[2022-02-02] MEDS ORDERED: Lidocaine 2% Syringe 100 MG/5 ML IVP ONE (11:38)
[2022-02-02] MEDS ORDERED: Mannitol 25% vial 12.5 GM/50 ML VIAL IVPB ONE (11:38)
[2022-02-02] MEDS ORDERED: D5% in Water 250 ML IV BAG IV ONE (11:38)
[2022-02-02] MEDS ORDERED: Heparin 1,000 UNITS/500 mL IV.SOLN IR ONE (11:38)
[2022-02-02] MEDS ORDERED: Tranexamic Acid 1,000 MG/10 ML VIAL IR ONE (11:38)
[2022-02-02] MEDS ORDERED: *HR* Heparin 10,000 UNIT/10 ML VIAL IR ONE (11:38)
[2022-02-02] MEDS ORDERED: *HR* FentaNYL (PF) 250 MCG/5 ML VIAL ONE (11:50)
[2022-02-02] MEDS ORDERED: *HR* Midazolam HCl 5 MG/5 ML VIAL IVP ONE ×2 (11:50→18:03)
[2022-02-02 11:52] LABS: ABG Base Excess 0 mEq/L (-2 to 3); ABG Chloride 102 mEq/L (98-107); ABG Glucose 107 mg/dL (60-95); ABG HCO3 25 mEq/L (21-27); ABG Ionized Calcium 1.04 mmol/L (1.15-1.35); ABG Oxygen Saturation 100 % (95-98); ABG PCO2 37 mmHg (35-45); ABG PH 7.42 pH Units (7.32-7.45); ABG PO2 521 mmHg (85-104); ABG TCO2 26 mEq/L (20-26)
[2022-02-02 12:25] LABS: ABG Base Excess 0 mEq/L (-2 to 3); ABG Chloride 102 mEq/L (98-107); ABG Glucose 125 mg/dL (60-95); ABG HCO3 24 mEq/L (21-27); ABG Ionized Calcium 1.02 mmol/L (1.15-1.35); ABG Oxygen Saturation 100 % (95-98); ABG PCO2 39 mmHg (35-45); ABG PH 7.41 pH Units (7.32-7.45); ABG PO2 575 mmHg (85-104); ABG TCO2 26 mEq/L (20-26)
[2022-02-02 13:28] LABS: ABG Base Excess 0 mEq/L (-2 to 3); ABG Chloride 102 mEq/L (98-107); ABG Glucose 130 mg/dL (60-95); ABG HCO3 24 mEq/L (21-27); ABG Ionized Calcium 1.01 mmol/L (1.15-1.35); ABG Oxygen Saturation 100 % (95-98); ABG PCO2 36 mmHg (35-45); ABG PH 7.44 pH Units (7.32-7.45); ABG PO2 513 mmHg (85-104); ABG TCO2 25 mEq/L (20-26)
[2022-02-02] MEDS ORDERED: Acetaminophen 325 MG TABLET PO PRN (14:25)
[2022-02-02] MEDS ORDERED: *HR* FentaNYL (PF) 100 MCG/2 ML VIAL IVP PRN (14:25)
[2022-02-02] MEDS ORDERED: Insulin Regular, Human 100 UNIT/ML IV PRN (14:25)
[2022-02-02] MEDS ORDERED: Potassium Chloride 40 MEQ/200 ML BAG IVPB PRN (14:25)
[2022-02-02] MEDS ORDERED: Calcium Gluconate 1gm/50mL 1 GM/50 ML BAG IVPB PRN (14:25)
[2022-02-02] MEDS ORDERED: *HR* Dextrose 50 % in Water (Syg) 50 ML SYRINGE IVP PRN (14:25)
[2022-02-02] MEDS ORDERED: Naloxone 0.4 MG/ML INJ IVP PRN (14:25)
[2022-02-02] MEDS: niCARdipine 20 MG/200 ML MLS IVC SCH ×3 (14:30→20:57)
[2022-02-02 14:52] LABS: ABG Base Excess -2 mEq/L (-2 to 3); ABG HCO3 25 mEq/L (21-27); ABG Oxygen Saturation 91 % (95-98); ABG PCO2 50 mmHg (35-45); ABG PH 7.31 pH Units (7.32-7.45); ABG PO2 68 mmHg (85-104); ABG TCO2 27 mEq/L (20-26); Blood Gas Modality ASSIST CONTROL; Blood Gas VT 600 cc
[2022-02-02 14:57] LABS: Mean Corpuscular Volume 95.9 fL (83.0-100.0)
[2022-02-02 14:59] LABS: Hematocrit 43.9 % (37.5-50.1); Mean Corpuscular HGB Conc 34.2 g/dL (31.6-35.5); Mean Corpuscular Hemoglobin 32.8 pg (28.0-33.3); Mean Platelet Volume 8.6 fL (9.4-12.4); Platelet Count 196 K/mcL (140-400); Red Blood Count 4.58 M/mcL (4.19-5.50); Red Cell Distribution Width 13.1 % (11.5-14.5); White Blood Count 26.3 K/mcL (4.3-11.1)
[2022-02-02 15:05] LABS: INR 1.2; Prothrombin Time 13.7 Seconds (9.4-12.1)
[2022-02-02 15:08] LABS: Activated Partial Thrombo Time 31.9 Seconds (26.0-36.0)
[2022-02-02 15:13] LABS: BUN/Creatinine Ratio 13 (6-26); Blood Urea Nitrogen 16 mg/dL (6-20); Calcium 8.5 mg/dL (8.6-10.3); Carbon Dioxide 25 mEq/L (23-29); Chloride 106 mEq/L (98-107); Glucose 119 mg/dL (70-105); Magnesium 2.4 mg/dL (1.6-2.6); Osmolality,Calculated 288 (280-300); Potassium 3.8 mEq/L (3.5-5.1); Sodium 138 mEq/L (136-145); eGFR For African Americans > 60 (> 60); eGFR For Non-African Americans > 60 (> 60)
[2022-02-02] MEDS: Albumin Human 5% 12.5 GM/250 ML IV.SOLN IVPB PRN ×5 (15:40→20:15)
[2022-02-02 15:42] LABS: Eosinophils # 0.8 K/mcL (0.0-0.6); Lymphocytes # 2.9 K/mcL (0.6-4.6); Monocytes # 0.5 K/mcL (0.0-1.3); Neutrophils # 21.8 K/mcL (1.6-8.9); Platelet Estimate Normal (Normal)
[2022-02-02] MEDS: Pantoprazole 40 MG VIAL IVP SCH (16:01)
[2022-02-02] MEDS: FentaNYL (PF) 1,000 MCG/100 ML IV.SOLN IVC SCH ×2 (16:50→22:15)
[2022-02-02] MEDS: Dexmedetomidine HCl 400 MCG/100 ML MLS IVC SCH ×2 (16:51→20:45)
[2022-02-02] MEDS: CeFAZolin 2,000 MG/120 ML BAG IVPB SCH (17:41)
[2022-02-02] MEDS: Norepinephrine 4 MG/254 ML IV.SOLN IVC SCH ×9 (17:41→20:38)
[2022-02-02] MEDS: DOBUTamine 1,000 MG/250 ML BAG IVC SCH (17:55)
[2022-02-02] MEDS ORDERED: Lidocaine -MPF 1% 5 ML AMPUL ONE (18:00)
[2022-02-02] MEDS ORDERED: *HR* EPINEPHrine 1 MG/10 ML SYRINGE ONE (18:01)
[2022-02-02 18:51] LABS: ABG Base Excess -2 mEq/L (-2 to 3); ABG HCO3 24 mEq/L (21-27); ABG Oxygen Saturation 95 % (95-98); ABG PCO2 42 mmHg (35-45); ABG PH 7.36 pH Units (7.32-7.45); ABG PO2 76 mmHg (85-104); ABG TCO2 25 mEq/L (20-26); Blood Gas Modality ASSIST CONTROL; Blood Gas VT 550 cc
[2022-02-02] MEDS ORDERED: *HR* Midazolam HCl 2 MG/2 ML VIAL IVP ONE (18:57)
[2022-02-02] MEDS: Chlorhexidine Rinse 15 ML MOUTHWASH MM SCH (20:56)
[2022-02-02 22:54] LABS: ABG Base Excess -1 mEq/L (-2 to 3); ABG HCO3 24 mEq/L (21-27); ABG Oxygen Saturation 97 % (95-98); ABG PCO2 39 mmHg (35-45); ABG PO2 87 mmHg (85-104); ABG TCO2 25 mEq/L (20-26); Blood Gas VT 550 cc
[2022-02-03] MEDS: Dexmedetomidine HCl 400 MCG/100 ML MLS IVC SCH ×4 (00:21→09:32)
[2022-02-03 02:08] LABS: ABG Base Excess 0 mEq/L (-2 to 3); ABG HCO3 24 mEq/L (21-27); ABG Oxygen Saturation 96 % (95-98); ABG PCO2 37 mmHg (35-45); ABG PH 7.42 pH Units (7.32-7.45); ABG PO2 83 mmHg (85-104); ABG TCO2 25 mEq/L (20-26); Blood Gas VT 550 cc
[2022-02-03] MEDS: FentaNYL (PF) 1,000 MCG/100 ML IV.SOLN IVC SCH ×2 (03:20→07:42)
[2022-02-03] MEDS: CeFAZolin 2,000 MG/120 ML BAG IVPB SCH ×3 (03:33→17:18)
[2022-02-03] MEDS: niCARdipine 20 MG/200 ML MLS IVC SCH ×5 (03:34→22:35)
[2022-02-03 04:02] LABS: Basophils # 0.1 K/mcL (0.0-0.2); Basophils % 0.5 %; Eosinophils % 0.3 %; Hematocrit 34.8 % (37.5-50.1); Immature Granulocytes % 0.9 % (0-4); Lymphocytes # 0.8 K/mcL (0.6-4.6); Lymphocytes % 8.3 %; Mean Corpuscular HGB Conc 34.8 g/dL (31.6-35.5); Mean Corpuscular Hemoglobin 33.1 pg (28.0-33.3); Mean Corpuscular Volume 95.1 fL (83.0-100.0); Mean Platelet Volume 8.7 fL (9.4-12.4); Monocytes # 0.9 K/mcL (0.0-1.3); Monocytes % 9.8 %; Neutrophils # 7.5 K/mcL (1.6-8.9); Platelet Count 134 K/mcL (140-400); Red Blood Count 3.66 M/mcL (4.19-5.50); Red Cell Distribution Width 13.4 % (11.5-14.5); Segmented Neutrophils % 80.2 %
[2022-02-03 04:04] LABS: Hemoglobin 12.1 g/dL (12.9-16.9); White Blood Count 9.3 K/mcL (4.3-11.1)
[2022-02-03 04:09] LABS: INR 1.2; Prothrombin Time 12.9 Seconds (9.4-12.1)
[2022-02-03 04:12] LABS: Activated Partial Thrombo Time 30.9 Seconds (26.0-36.0)
[2022-02-03 04:24] LABS: BUN/Creatinine Ratio 15 (6-26); Blood Urea Nitrogen 14 mg/dL (6-20); Calcium 8.5 mg/dL (8.6-10.3); Carbon Dioxide 25 mEq/L (23-29); Chloride 106 mEq/L (98-107); Glucose 142 mg/dL (70-105); Magnesium 2.1 mg/dL (1.6-2.6); Osmolality,Calculated 287 (280-300); Potassium 4.3 mEq/L (3.5-5.1); Sodium 137 mEq/L (136-145); eGFR For African Americans > 60 (> 60); eGFR For Non-African Americans > 60 (> 60)
[2022-02-03] MEDS: Norepinephrine 4 MG/254 ML IV.SOLN IVC SCH ×2 (05:43→08:48)
[2022-02-03] MEDS: *HR* Heparin 5,000 UNIT/ML VIAL SQ SCH ×3 (05:43→21:28)
[2022-02-03 06:24] LABS: ABG Base Excess 0 mEq/L (-2 to 3); ABG HCO3 25 mEq/L (21-27); ABG Oxygen Saturation 96 % (95-98); ABG PCO2 38 mmHg (35-45); ABG PH 7.42 pH Units (7.32-7.45); ABG PO2 81 mmHg (85-104); ABG TCO2 26 mEq/L (20-26); Blood Gas VT 550 cc
[2022-02-03 07:10] LABS: ABG Base Excess -3 mEq/L (-2 to 3); ABG Chloride 104 mEq/L (98-107); ABG Glucose 139 mg/dL (60-95); ABG HCO3 23 mEq/L (21-27); ABG Ionized Calcium 1.31 mmol/L (1.15-1.35); ABG Oxygen Saturation 100 % (95-98); ABG PCO2 39 mmHg (35-45); ABG PH 7.37 pH Units (7.32-7.45); ABG PO2 288 mmHg (85-104); ABG TCO2 24 mEq/L (20-26)
[2022-02-03] MEDS: Chlorhexidine Rinse 15 ML MOUTHWASH MM SCH ×2 (07:15→21:28)
[2022-02-03] MEDS: Pantoprazole 40 MG VIAL IVP SCH (07:15)
[2022-02-03] MEDS: Aspirin Enteric Coated 81 MG Tablet PO SCH (07:16)
[2022-02-03] MEDS: Albumin Human 5% 12.5 GM/250 ML IV.SOLN IVC SCH ×2 (07:57→08:23)
[2022-02-03 12:26] LABS: ABG Base Excess 0 mEq/L (-2 to 3); ABG HCO3 25 mEq/L (21-27); ABG Oxygen Saturation 95 % (95-98); ABG PCO2 39 mmHg (35-45); ABG PH 7.41 pH Units (7.32-7.45); ABG PO2 75 mmHg (85-104); ABG TCO2 26 mEq/L (20-26)
[2022-02-03] MEDS ORDERED: D5% in Water 1,000 ML IVC PRN (14:07)
[2022-02-03] MEDS ORDERED: Dextrose 4 GM Chewable Tablets PO PRN ×2 (14:07)
[2022-02-03] MEDS ORDERED: *HR* Dextrose 50 % in Water (Syg) 50 ML SYRINGE IVP PRN (14:07)
[2022-02-03] MEDS: *HR* OxyCODONE/APAP 5/325 TABLET PO PRN (14:44)
[2022-02-03] MEDS: DOBUTamine 1,000 MG/250 ML BAG IVC SCH (14:44)
[2022-02-03] MEDS: Ondansetron 4 MG/2 ML VIAL IVP PRN (16:20)
[2022-02-03] MEDS: Ipratropium/Albuterol Neb 3 ML IH PRN (16:33)
[2022-02-03] MEDS: Insulin LISPRO 300 UNITS/3 ML VIAL SUBQ SCH ×2 (17:16→21:00)
[2022-02-04] MEDS: DOBUTamine 1,000 MG/250 ML BAG IVC SCH (01:37)
[2022-02-04] MEDS: niCARdipine 20 MG/200 ML MLS IVC SCH ×5 (03:12→20:18)
[2022-02-04] MEDS: *HR* Heparin 5,000 UNIT/ML VIAL SQ SCH ×3 (04:30→20:00)
[2022-02-04 04:45] LABS: Basophils % 0.4 %; Eosinophils % 0.2 %; Hematocrit 32.9 % (37.5-50.1); Hemoglobin 10.7 g/dL (12.9-16.9); Immature Granulocytes % 0.7 % (0-4); Lymphocytes # 0.7 K/mcL (0.6-4.6); Lymphocytes % 6.6 %; Mean Corpuscular HGB Conc 32.5 g/dL (31.6-35.5); Mean Corpuscular Hemoglobin 31.8 pg (28.0-33.3); Mean Corpuscular Volume 97.9 fL (83.0-100.0); Mean Platelet Volume 9.1 fL (9.4-12.4); Monocytes # 0.9 K/mcL (0.0-1.3); Monocytes % 8.4 %; Neutrophils # 9.3 K/mcL (1.6-8.9); Platelet Count 120 K/mcL (140-400); Red Blood Count 3.36 M/mcL (4.19-5.50); Red Cell Distribution Width 13.4 % (11.5-14.5); Segmented Neutrophils % 83.7 %; White Blood Count 11.1 K/mcL (4.3-11.1)
[2022-02-04 05:02] LABS: BUN/Creatinine Ratio 16 (6-26); Blood Urea Nitrogen 16 mg/dL (6-20); Calcium 8.2 mg/dL (8.6-10.3); Carbon Dioxide 27 mEq/L (23-29); Chloride 102 mEq/L (98-107); Glucose 164 mg/dL (70-105); Magnesium 1.9 mg/dL (1.6-2.6); Osmolality,Calculated 285 (280-300); Potassium 4.1 mEq/L (3.5-5.1); Sodium 135 mEq/L (136-145); eGFR For African Americans > 60 (> 60); eGFR For Non-African Americans > 60 (> 60)
[2022-02-04] MEDS: CeFAZolin 2,000 MG/120 ML BAG IVPB SCH ×2 (07:20→08:50)
[2022-02-04] MEDS: Norepinephrine 4 MG/254 ML IV.SOLN IVC SCH (07:21)
[2022-02-04] MEDS: Insulin LISPRO 300 UNITS/3 ML VIAL SUBQ SCH ×4 (08:48→20:01)
[2022-02-04] MEDS: Chlorhexidine Rinse 15 ML MOUTHWASH MM SCH ×2 (08:49→20:00)
[2022-02-04] MEDS: Pantoprazole 40 MG VIAL IVP SCH (08:49)
[2022-02-04] MEDS: Aspirin Enteric Coated 81 MG Tablet PO SCH (08:50)
[2022-02-04] MEDS: Ipratropium/Albuterol Neb 3 ML IH PRN (09:20)
[2022-02-04] MEDS ORDERED: *HR* Metoprolol 5 MG/5 ML VIAL IVP PRN (09:32)
[2022-02-04] MEDS: Ondansetron 4 MG/2 ML VIAL IVP PRN (11:42)
[2022-02-04] MEDS: Furosemide 40 MG/4 ML VIAL IVP SCH ×2 (11:48→20:08)
[2022-02-04] MEDS: *HR* OxyCODONE/APAP 5/325 TABLET PO PRN ×2 (15:44→19:59)
[2022-02-04] MEDS: Ondansetron ODT 4 MG TAB.RAPDIS SL PRN (17:09)
[2022-02-05] MEDS: Ondansetron ODT 4 MG TAB.RAPDIS SL PRN ×2 (00:57→09:19)
[2022-02-05] MEDS: *HR* OxyCODONE/APAP 5/325 TABLET PO PRN ×3 (02:45→20:56)
[2022-02-05] MEDS: niCARdipine 20 MG/200 ML MLS IVC SCH ×6 (03:02→21:57)
[2022-02-05] MEDS: *HR* Heparin 5,000 UNIT/ML VIAL SQ SCH ×3 (03:50→20:55)
[2022-02-05] MEDS: Insulin LISPRO 300 UNITS/3 ML VIAL SUBQ SCH ×4 (08:38→20:46)
[2022-02-05] MEDS: Chlorhexidine Rinse 15 ML MOUTHWASH MM SCH ×2 (08:40→21:57)
[2022-02-05] MEDS: Aspirin Enteric Coated 81 MG Tablet PO SCH (08:40)
[2022-02-05] MEDS: Pantoprazole 40 MG VIAL IVP SCH (08:42)
[2022-02-05] MEDS ORDERED: Simethicone 80 MG TAB.CHEW PO PRN (09:28)
[2022-02-05 09:45] LABS: Basophils % 0.4 %; Eosinophils # 0.1 K/mcL (0.0-0.6); Eosinophils % 1.3 %; Hematocrit 33.6 % (37.5-50.1); Hemoglobin 11.3 g/dL (12.9-16.9); Immature Granulocytes % 1.1 % (0-4); Lymphocytes % 10.4 %; Mean Corpuscular HGB Conc 33.6 g/dL (31.6-35.5); Mean Corpuscular Hemoglobin 31.9 pg (28.0-33.3); Mean Corpuscular Volume 94.9 fL (83.0-100.0); Monocytes # 0.8 K/mcL (0.0-1.3); Monocytes % 7.9 %; Neutrophils # 7.8 K/mcL (1.6-8.9); Platelet Count 141 K/mcL (140-400); Red Blood Count 3.54 M/mcL (4.19-5.50); Red Cell Distribution Width 13.3 % (11.5-14.5); Segmented Neutrophils % 78.9 %; White Blood Count 9.9 K/mcL (4.3-11.1)
[2022-02-05 10:04] LABS: BUN/Creatinine Ratio 21 (6-26); Blood Urea Nitrogen 20 mg/dL (6-20); Calcium 8.9 mg/dL (8.6-10.3); Carbon Dioxide 32 mEq/L (23-29); Chloride 99 mEq/L (98-107); Glucose 116 mg/dL (70-105); Magnesium 1.8 mg/dL (1.6-2.6); Osmolality,Calculated 286 (280-300); Sodium 136 mEq/L (136-145); eGFR For African Americans > 60 (> 60); eGFR For Non-African Americans > 60 (> 60)
[2022-02-05] MEDS: Furosemide 40 MG/4 ML VIAL IVP SCH ×2 (10:08→20:55)
[2022-02-05] MEDS: DOBUTamine 1,000 MG/250 ML BAG IVC SCH (14:46)
[2022-02-05] MEDS: Ipratropium/Albuterol Neb 3 ML IH PRN (19:42)
[2022-02-05] MEDS: Dexmedetomidine HCl 400 MCG/100 ML MLS IVC SCH (21:39)
[2022-02-05] MEDS: Norepinephrine 4 MG/254 ML IV.SOLN IVC SCH (21:57)
[2022-02-06] MEDS: niCARdipine 20 MG/200 ML MLS IVC SCH ×3 (02:40→11:56)
[2022-02-06] MEDS: *HR* Heparin 5,000 UNIT/ML VIAL SQ SCH ×3 (04:34→20:23)
[2022-02-06] MEDS: Chlorhexidine Rinse 15 ML MOUTHWASH MM SCH ×2 (07:26→20:44)
[2022-02-06] MEDS: Pantoprazole 40 MG VIAL IVP SCH (07:27)
[2022-02-06] MEDS: Furosemide 40 MG/4 ML VIAL IVP SCH ×2 (07:27→20:23)
[2022-02-06] MEDS: Ondansetron ODT 4 MG TAB.RAPDIS SL PRN (07:28)
[2022-02-06] MEDS: *HR* OxyCODONE/APAP 5/325 TABLET PO PRN ×2 (07:28→17:44)
[2022-02-06] MEDS: Aspirin Enteric Coated 81 MG Tablet PO SCH (07:28)
[2022-02-06] MEDS: Insulin LISPRO 300 UNITS/3 ML VIAL SUBQ SCH ×2 (07:42→17:01)
[2022-02-06 07:53] LABS: Basophils # 0.1 K/mcL (0.0-0.2); Basophils % 0.7 %; Eosinophils # 0.2 K/mcL (0.0-0.6); Eosinophils % 1.8 %; Hemoglobin 12.2 g/dL (12.9-16.9); Lymphocytes % 9.1 %; Mean Corpuscular HGB Conc 33.9 g/dL (31.6-35.5); Mean Corpuscular Hemoglobin 32.1 pg (28.0-33.3); Mean Corpuscular Volume 94.7 fL (83.0-100.0); Mean Platelet Volume 8.8 fL (9.4-12.4); Monocytes % 8.9 %; Platelet Count 199 K/mcL (140-400); Red Cell Distribution Width 13.2 % (11.5-14.5); Segmented Neutrophils % 78.5 %; White Blood Count 11.4 K/mcL (4.3-11.1)
[2022-02-06 08:12] LABS: BUN/Creatinine Ratio 27 (6-26); Blood Urea Nitrogen 28 mg/dL (6-20); Calcium 8.9 mg/dL (8.6-10.3); Carbon Dioxide 31 mEq/L (23-29); Chloride 97 mEq/L (98-107); Glucose 116 mg/dL (70-105); Osmolality,Calculated 286 (280-300); Sodium 135 mEq/L (136-145); eGFR For African Americans > 60 (> 60); eGFR For Non-African Americans > 60 (> 60)
[2022-02-06] MEDS: Dexmedetomidine HCl 400 MCG/100 ML MLS IVC SCH (11:56)
[2022-02-06] MEDS: DOBUTamine 1,000 MG/250 ML BAG IVC SCH (11:57)
[2022-02-06] MEDS ORDERED: Naloxone 0.4 MG/ML INJ IVP PRN (13:13)
[2022-02-06] MEDS ORDERED: Acetaminophen 325 MG TABLET PO PRN (13:13)
[2022-02-06] MEDS ORDERED: Simethicone 80 MG TAB.CHEW PO PRN (13:13)
[2022-02-06] MEDS ORDERED: Albumin Human 5% 12.5 GM/250 ML IV.SOLN IVPB PRN (13:13)
[2022-02-06] MEDS ORDERED: D5% in Water 1,000 ML IVC PRN (13:13)
[2022-02-06] MEDS ORDERED: *HR* Dextrose 50 % in Water (Syg) 50 ML SYRINGE IVP PRN (13:13)
[2022-02-06] MEDS ORDERED: Calcium Gluconate 1gm/50mL 1 GM/50 ML BAG IVPB PRN (13:13)
[2022-02-06] MEDS ORDERED: Ipratropium/Albuterol Neb 3 ML IH PRN (13:13)
[2022-02-06] MEDS ORDERED: Dextrose 4 GM Chewable Tablets PO PRN ×2 (13:13)
[2022-02-06] MEDS ORDERED: Insulin LISPRO 300 UNITS/3 ML VIAL SUBQ SCH (21:00)
[2022-02-07] MEDS: *HR* OxyCODONE/APAP 5/325 TABLET PO PRN ×2 (03:31→09:11)
[2022-02-07] MEDS: *HR* Heparin 5,000 UNIT/ML VIAL SQ SCH (03:32)
[2022-02-07] MEDS: Ondansetron ODT 4 MG TAB.RAPDIS SL PRN ×2 (03:32→09:10)
[2022-02-07 04:18] LABS: Basophils # 0.1 K/mcL (0.0-0.2); Eosinophils # 0.4 K/mcL (0.0-0.6); Eosinophils % 3.3 %; Hematocrit 35.5 % (37.5-50.1); Hemoglobin 11.9 g/dL (12.9-16.9); Immature Granulocytes % 1.2 % (0-4); Lymphocytes # 1.5 K/mcL (0.6-4.6); Mean Corpuscular HGB Conc 33.5 g/dL (31.6-35.5); Mean Corpuscular Hemoglobin 31.6 pg (28.0-33.3); Mean Corpuscular Volume 94.4 fL (83.0-100.0); Mean Platelet Volume 8.9 fL (9.4-12.4); Monocytes % 8.5 %; Neutrophils # 8.2 K/mcL (1.6-8.9); Platelet Count 242 K/mcL (140-400); Red Blood Count 3.76 M/mcL (4.19-5.50); Red Cell Distribution Width 13.2 % (11.5-14.5); White Blood Count 11.3 K/mcL (4.3-11.1)
[2022-02-07 04:34] LABS: BUN/Creatinine Ratio 32 (6-26); Blood Urea Nitrogen 33 mg/dL (6-20); Carbon Dioxide 32 mEq/L (23-29); Chloride 96 mEq/L (98-107); Glucose 130 mg/dL (70-105); Magnesium 1.9 mg/dL (1.6-2.6); Osmolality,Calculated 289 (280-300); Potassium 3.9 mEq/L (3.5-5.1); Sodium 135 mEq/L (136-145); eGFR For African Americans > 60 (> 60); eGFR For Non-African Americans > 60 (> 60)
[2022-02-07 07:34] VITALS: BP 126/75
[2022-02-07] MEDS: Insulin LISPRO 300 UNITS/3 ML VIAL SUBQ SCH (07:40)
[2022-02-07] MEDS ORDERED: Aspirin Enteric Coated 81 MG Tablet PO SCH (09:00)
[2022-02-07] MEDS ORDERED: Pantoprazole 40 MG VIAL IVP SCH (09:00)
[2022-02-07] MEDS: Chlorhexidine Rinse 15 ML MOUTHWASH MM SCH (09:12)
[2022-02-07] MEDS: Furosemide 40 MG/4 ML VIAL IVP SCH (09:12)
[2022-02-07 11:37] VITALS: PULSE 82
[2022-02-07 11:54] VITALS: TEMP 98.5
[2022-02-07 12:39] VITALS: O2SAT 92
== END 2022-02-07 12:46 | disposition home or self-care (01) | DRG 163 ==
LOC: SAMDAY 07:13 → ICNU 14:24 → SUATTDRO 14:24 → 2NNU 02-07 06:22
PROVIDERS: ADMIT Thoracic Surgery (Cardiothoracic Vascular Surgery); ATTEND Internal Medicine

== ENCOUNTER 2022-02-12 19:18 | Observation (INO) ==
[2022-02-12] MEDS ORDERED: Isovue-370 500 ML BOTTLE IVP ONE (19:48)
[2022-02-12 20:26] LABS: Basophils # 0.1 K/mcL (0.0-0.2); Basophils % 1.1 %; Eosinophils # 0.4 K/mcL (0.0-0.6); Hemoglobin 10.5 g/dL (12.9-16.9); Immature Granulocytes % 2.8 % (0-4); Lymphocytes % 19.8 %; Mean Corpuscular HGB Conc 32.8 g/dL (31.6-35.5); Mean Corpuscular Hemoglobin 31.8 pg (28.0-33.3); Mean Platelet Volume 8.6 fL (9.4-12.4); Monocytes # 0.8 K/mcL (0.0-1.3); Monocytes % 7.9 %; Neutrophils # 6.6 K/mcL (1.6-8.9); Platelet Count 410 K/mcL (140-400); Red Cell Distribution Width 13.2 % (11.5-14.5); Segmented Neutrophils % 64.4 %; White Blood Count 10.3 K/mcL (4.3-11.1)
[2022-02-12 20:35] LABS: INR 1.1; Prothrombin Time 11.7 Seconds (9.4-12.1)
[2022-02-12 21:02] LABS: Alanine Aminotransferase 22 Units/L (7-52); Albumin 3.2 g/dL (3.5-5.7); Albumin/Globulin Ratio 0.9 (1.1-2.2); Alkaline Phosphatase 103 Units/L (34-104); Aspartate Amino Transferase 19 Units/L (13-39); BUN/Creatinine Ratio 18 (6-26); Bilirubin,Direct 0.1 mg/dL (0.0-0.2); Bilirubin,Indirect 0.2 mg/dL (0.0-1.0); Bilirubin,Total 0.3 mg/dL (0.3-1.0); Blood Urea Nitrogen 18 mg/dL (6-20); Calcium 8.4 mg/dL (8.6-10.3); Carbon Dioxide 25 mEq/L (23-29); Chloride 106 mEq/L (98-107); Globulin 3.4 g/dL (2.4-3.5); Glucose 127 mg/dL (70-105); Osmolality,Calculated 291 (280-300); Potassium 3.8 mEq/L (3.5-5.1); Sodium 139 mEq/L (136-145); Total Protein 6.6 g/dL (6.4-8.9); eGFR For African Americans > 60 (> 60); eGFR For Non-African Americans > 60 (> 60)
[2022-02-12 21:09] LABS: Troponin I 0.08 ng/mL (< 0.04)
[2022-02-12 21:24] LABS: Influenza A PCR Negative (Negative); Influenza B PCR Negative (Negative); Resp. Syncytial Virus PCR Negative (Negative); SARS-CoV-2 by PCR (In House) Negative (Negative)
[2022-02-12 21:38] LABS: Bilirubin,Urine Negative (Negative); Blood,Urine Negative (Negative); Clarity,Urine Clear (Clear); Color,Urine Yellow (Yellow); Glucose,Urine (UA) Normal (Normal); Ketones,Urine Negative (Negative); Leukocyte Esterase,Urine Negative (Negative); Nitrite,Urine Negative (Negative); Protein,Urine Trace mg/dL (Neg-Trace); Specific Gravity,Urine > 1.030 (1.010-1.025); Urobilinogen,Urine Normal (Normal)
[2022-02-12] MEDS ORDERED: Furosemide 40 MG/4 ML VIAL IVP ONE (23:04)
[2022-02-12] MEDS ORDERED: Albuterol 2.5 MG/3 ML NEBULIZER IH ONE (23:49)
[2022-02-12] MEDS ORDERED: Ipratropium/Albuterol Neb 3 ML IH ONE (23:49)
[2022-02-13] MEDS ORDERED: methylPREDNISolone 125 MG/2 ML VIAL IVP ONE (00:37)
[2022-02-13 01:01] LABS: ABG Base Excess 1 mEq/L (-2 to 3); ABG HCO3 25 mEq/L (21-27); ABG Oxygen Saturation 93 % (95-98); ABG PCO2 34 mmHg (35-45); ABG PH 7.47 pH Units (7.32-7.45); ABG PO2 61 mmHg (85-104); ABG TCO2 26 mEq/L (20-26)
[2022-02-13] MEDS ORDERED: Melatonin 3 MG TABLET PO PRN (01:56)
[2022-02-13] MEDS ORDERED: Acetaminophen 325 MG TABLET PO PRN (01:56)
[2022-02-13] MEDS ORDERED: Ondansetron 4 MG/2 ML VIAL IVP PRN (01:56)
[2022-02-13] MEDS ORDERED: Naloxone 0.4 MG/ML INJ IVP PRN (01:56)
[2022-02-13] MEDS ORDERED: Ketorolac 30 MG/ML VIAL IVP PRN (04:05)
[2022-02-13] MEDS ORDERED: Albuterol 2.5 MG/3 ML NEBULIZER IH PRN (04:06)
[2022-02-13] MEDS ORDERED: Cefuroxime PO 500 MG TABLET PO SCH (06:00)
[2022-02-13 06:09] LABS: Alanine Aminotransferase 25 Units/L (7-52); Albumin 3.5 g/dL (3.5-5.7); Albumin/Globulin Ratio 0.9 (1.1-2.2); Alkaline Phosphatase 103 Units/L (34-104); Aspartate Amino Transferase 21 Units/L (13-39); BUN/Creatinine Ratio 20 (6-26); Bilirubin,Total 0.4 mg/dL (0.3-1.0); Blood Urea Nitrogen 21 mg/dL (6-20); Calcium 9.1 mg/dL (8.6-10.3); Carbon Dioxide 25 mEq/L (23-29); Chloride 103 mEq/L (98-107); Globulin 3.9 g/dL (2.4-3.5); Glucose 143 mg/dL (70-105); Magnesium 1.8 mg/dL (1.6-2.6); Osmolality,Calculated 291 (280-300); Phosphorous 3.5 mg/dL (2.7-4.5); Sodium 138 mEq/L (136-145); Total Protein 7.4 g/dL (6.4-8.9); eGFR For African Americans > 60 (> 60); eGFR For Non-African Americans > 60 (> 60)
[2022-02-13 06:11] LABS: Troponin I 0.06 ng/mL (< 0.04)
[2022-02-13] MEDS: Ipratropium/Albuterol Neb 3 ML IH SCH ×2 (06:11→11:19)
[2022-02-13] MEDS ORDERED: Perflutren Lipid Microsphere 1.3 ML in 0.9 % Sodium Chloride 8.7 ML IVP PRN (06:13)
[2022-02-13 06:27] LABS: Basophils # 0.1 K/mcL (0.0-0.2); Basophils % 0.7 %; Eosinophils # 0.1 K/mcL (0.0-0.6); Eosinophils % 0.8 %; Hematocrit 32.7 % (37.5-50.1); Hemoglobin 11.1 g/dL (12.9-16.9); Immature Granulocytes % 2.4 % (0-4); Lymphocytes % 7.5 %; Mean Corpuscular HGB Conc 33.9 g/dL (31.6-35.5); Mean Corpuscular Hemoglobin 32.6 pg (28.0-33.3); Mean Corpuscular Volume 95.9 fL (83.0-100.0); Mean Platelet Volume 8.8 fL (9.4-12.4); Monocytes # 0.3 K/mcL (0.0-1.3); Neutrophils # 11.2 K/mcL (1.6-8.9); Platelet Count 456 K/mcL (140-400); Red Blood Count 3.41 M/mcL (4.19-5.50); Red Cell Distribution Width 13.3 % (11.5-14.5); Segmented Neutrophils % 86.6 %; White Blood Count 12.9 K/mcL (4.3-11.1)
[2022-02-13 06:35] LABS: INR 1.1; Prothrombin Time 12.2 Seconds (9.4-12.1)
[2022-02-13] MEDS ORDERED: Furosemide 40 MG/4 ML VIAL IVP SCH (09:00)
[2022-02-13 11:14] VITALS: BP 144/77; TEMP 97.7
[2022-02-13 14:21] VITALS: PULSE 97; O2SAT 92
[2022-02-13] MEDS ORDERED: *HR* Heparin 5,000 UNIT/ML VIAL SQ SCH (18:00)
== END 2022-02-13 15:54 | disposition home or self-care (01) ==
LOC: 2NNU 19:18 → EMEROOARM 19:18 → SUATTDRO 02-13 00:46 → 2NNU 02-13 01:20
PROVIDERS: ADMIT Internal Medicine; ATTEND Internal Medicine